=== PATIENT | female | born 1990 | race Hispanic/Latino ===

== ENCOUNTER 2017-12-02 20:04 | Emergency (ER) | payer SELFPAY ==
[2017-12-02] MEDS ORDERED: NACL 0.9% 1000 ML 1,000 ML IV ONE (22:50)
[2017-12-02] MEDS ORDERED: BENADRYL IV ONE (22:50)
[2017-12-02] MEDS ORDERED: REGLAN IV ONE (22:50)
[2017-12-02] MEDS ORDERED: TORADOL IV ONE (22:50)
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
[2017-12-02 23:19] VITALS: BP 122/60
[2017-12-03 00:31] LABS: Amorphous Crystals,Urine 3+; Bilirubin,Urine NEG (Negative); Blood,Urine NEG (Negative); Color,Urine Amber (Yellow); Mucus,Urine 1+ /HPF; Protein,Urine <15 mg/dL mg/dL (Negative); Urobilinogen,Urine < 2.0 mg/dL (<2.0)
[2017-12-03 00:36] LABS: HCG Qualitative,Urine Negative (Negative)
--- NOTE | 2017-12-03 01:51 | Cat Scan Report ---
FINAL REPORT PROCEDURE: CT HEAD/BRAIN WO CON TECHNIQUE: Computerized tomography of the head was performed without contrast material. HISTORY: headache COMPARISON: No prior studies are available for comparison. FINDINGS: Skull and scalp: Normal. Paranasal sinuses: Normal. Ventricles and subarachnoid spaces: Normal. Cerebrum: No evidence of hemorrhage, acute infarction or mass . Cerebellum and brainstem: No evidence of hemorrhage, acute infarction or mass. Vasculature: Normal. Comments: None. IMPRESSION: There is no evidence of an acute intracranial process
== END 2017-12-03 02:07 | disposition home or self-care (01) ==
LOC: ED 20:04
DX: N39.0 Urinary tract infection, site not specified (principal); R51 Headache; F17.200 Nicotine dependence, unspecified, uncomplicated
CPT/HCPCS: 70450; 81001; 81025; 96361; 96374; 96375; 99284; J1200; J1885; J2765; J7030